=== PATIENT | female | born 1960 | race Caucasian/White ===

== ENCOUNTER 2020-12-28 13:04 | Outpatient (RCR) | payer BC, SELFPAY ==
--- NOTE | 2020-12-28 14:32 | PTOPEVAL ---
PHYSICAL THERAPY EVALUATION AND PLAN OF CARE 12-28-20 Thank you for referring Anel Klein to [facility], for the diagnosis of BPPV. Anel's Plan of Care is for? 0-2 x/week for 6 weeks. She is scheduled to have surgical repair of deviated septum in 2 days. She is to call if she has any further questions, or if she needs additional therapy post op. Please review, sign, date and return this plan of care DAVE. I agree with and certify that the following plan of care is medically necessary. Referring Physician Date Attending Provider: Jack Pimentel MD PT Outpatient Evaluation Document 12/28/20 13:20 YLNN (Rec: 12/28/20 14:32 LYNN [id number]) Past Medical History Source of Past Medical History Recalled from Previous Visit, Confirmed with Patient/Family Neurological History Hx Other Neurological Disorders Yes: vertigo Cardiovascular History Hx Cardiac Disorders No Significant History Respiratory History Hx Pneumonia Yes: 1982 Hx Other Respiratory Disorders Yes: smoker Gastrointestinal History Hx Irritable Bowel Yes Genitourinary History Hx Genitourinary Disorders No Significant History Musculoskeletal History Hx Back Pain Yes Hx Spinal Surgery Yes: neck disc fusion 2002, 2006bulging disc repaired in neck Hematological History Hx Hematological Disorders No Significant History Endocrine History Hx Endocrine Disorders No Significant History HEENT History Hx Sinus Problems Yes: take over the counter med to manage; Hx Other HEENT Disorders Yes: wear glasses eyes feel strained- need to get eye exam ; Integumentary History Hx Excision Skin Lesion Yes: wrist skin spot removed Reproductive History Hx Other Reproductive Disorders Yes: missed ab,d&c Psychosocial History Hx Psychiatric Disorders No Significant History Pain History Has Past Pain Affected Your Daily Life Yes: back pain Effective Methods of Pain Control ibuprofen,topical meds Anesthesia History Hx Anesthesia Reactions No Significant History Other History Hx Other Medical Conditions Yes: has had COVID vaccine Evaluation Information Problem Diagnosis BPPV Onset November 2020 Previous Treatments Previous Treatments For This Problem seeing chiropractor for neck pain 2x/month-gave eye tracking exercises Prior Level of Function Activity Level (Last 3 Months) 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
--- NOTE | 2021-03-21 16:22 | PCPTNOTE ---
PHYSICAL THERAPY DISCHARGE 03-21-21 LATER ENTRY Attending Provider: Jack Pimentel MD Patient:Anel Klein Date of :1960 Mrs. Klein has not returned for any further treatments since the PT evaluation for vertigo on 12/28/2020, therefore she will be discharged at this time. Thank you for referring this patient to [facility]. Please review, sign, date and return this discharge summary DAVE. I have been updated about the patient's current status and I agree with discharge from the above service at this time. Referring Physician Date
== END 2021-03-17 11:01 | disposition home or self-care (01) ==
LOC: ANHPT 13:04
PROVIDERS: Visit Provider Otolaryngology
DX: H81.10 Benign paroxysmal vertigo, unspecified ear (principal)
CPT/HCPCS: 97161

== ENCOUNTER 2020-12-28 14:29 | Outpatient (CLI) | payer BC, SELFPAY ==
--- NOTE | 2020-12-28 14:39 | ECG_ITS ---
Measurements Intervals [place] Rate: 73 P: 78 [place]: 195 QRS: 87 QRSD: 83 T: 60 QT: 382 QTc: 424 Interpretive Statements SINUS RHYTHM POSSIBLE LEFT ATRIAL ENLARGEMENT BORDERLINE ECG Electronically Signed On 12-28-2020 14:52:13 CDT by Sabas Melgar D.O.
== END 2020-12-28 14:30 | disposition home or self-care (01) ==
LOC: ANHSURGERY 14:34
PROVIDERS: PCP Registered Nurse; Visit Provider Otolaryngology
DX: Z87.891 Personal history of nicotine dependence (principal); R94.31 Abnormal electrocardiogram [ECG] [EKG]
CPT/HCPCS: 93005

== ENCOUNTER 2021-01-31 01:11 | Day surgery (SDC) | payer BC, SELFPAY ==
[2021-01-26 13:49] VITALS: BMI 17.9
[2021-01-31] VITALS (9 sets, daily range): BP systolic 118–156; BP diastolic 62–98; PULSE 68–84; RESP 16–21; TEMP 36.2–37.2; O2SAT 97–100
[2021-01-31] MEDS: ACETAMINOPHEN 500 MG TABLET 1000 MG PO (06:38)
[2021-01-31] MEDS: LACTATED RINGERS 1,000 ML 30 ML IV CONT (06:39)
[2021-01-31] MEDS: OXYMETAZOLINE HCL 0.05% NAS 15 ML BTL (*BKC) 1 SPRAY NASAL (06:39)
--- NOTE | 2021-01-31 06:42 | P.PNAN_ITS ---
Anes - Initial Pre Proc Eval Procedure: Operation Date: 01/31/21 07:30 Proposed Procedures p Septoplasty - Murtaza Cross MD s Bilateral Turbinate Reduction - Murtaza Cross MD Date/Time: 01/31/21 06:42 Surgeon: Murtaza Cross MD Pre Op Diagnosis: deviated septum, turbinate hypertrophy Patient Data Age: 60 Gender: F Height: 1.57 m Weight: 44.5 kg Allergies Allergy/AdvReac Type Severity Reaction Status Date / Time Penicillins Allergy Severe Itching Verified 01/26/21 13:30 Home Medications Medication Instructions Recorded Confirmed Type cyanocobalamin (vitamin B-12) 500 500 mcg PO DAILY 12/09/20 01/26/21 History mcg tablet levocetirizine 5 mg tablet 5 mg PO PRN PRN 12/09/20 01/26/21 History magnesium 250 mg tablet 250 mg PO DAILY 12/09/20 01/26/21 History omega-3 fatty acids 1,000 mg 1,000 mg PO DAILY 12/09/20 01/26/21 History capsule cholecalciferol (vitamin D3) 125 mcg PO DAILY 12/27/20 01/26/21 History [Vitamin D3] potassium 250 mg PO DAILY 12/27/20 01/26/21 History guaifenesin [Mucinex] 600 mg PO PRN PRN 01/26/21 01/26/21 History Patient hx anesthesia problems: none Family hx anesthesia problems: none [facility] Past Medical History Medical History (Updated 01/31/21 @ 06:43 by Desean Farias DO) Anxiety Surgical History Surgical History (Updated 01/31/21 @ 06:43 by Desean Farias DO) S/P cervical spinal fusion Social History Social History (Updated 12/09/20 @ 09:47 by Yamilet Green MA) Smoking packs per day: 1 Smoking cigarettes per day: 20.0 Years smoked: 38 Smoking pack-years: 38.00 Smoking status: Heavy tobacco smoker Tobacco type: cigarettes Additional smoking assessment comments: 1 ppd [id number] years Alcohol intake: current Drinks per week: 6 Substance use: never Spiritual care concerns: No Anes - Eval Final PreProcedure Day of Procedure 01/31/21 06:42 Patient weight: thin Heart: regular rate and rhythm Lungs: clear to auscultation and normal air movement Airway: Mallampati scale class II Neurological: alert and oriented Last oral intake: >/= 8 hours ASA classification: III Emergent: no Anesthetic plan: proceed Anesthesia type and monitoring: general ETT and standard monitoring Informed Consent: The patient's anesthetic plan and its attendant risks and elza efits were discussed with the patient/family/POA. Questions were solicited and answers provided to the satisfaction of the patient/family/POA.
--- NOTE | 2021-01-31 07:25 | WPDHPUPDATE1 ---
History and Physical Update Update Date/Time: 01/31/21 07:25 History and Physical has been reviewed, including an updated exam of the patient. There are NO changes in the patient's condition. Risks, benefits, and alternatives have been discussed and questions answered. Patient agrees to proceed with procedure.
[2021-01-31] MEDS: ceFAZolin 2 GM/D5W 50 ML 2 GM/50 ML BAG IVPB (07:30)
[2021-01-31] MEDS: LIDO 1%/EPINEPHRINE/PF 1:200,000 30 ML VIAL 6 ML XX (07:45)
[2021-01-31] MEDS: MUPIROCIN 2% OINT 22 GM TUBE 1 APPLIC EACH NARE (08:40)
--- NOTE | 2021-01-31 08:41 | P.OP_ITS ---
Procedure Note - Detailed Date of Procedure 01/31/21 Pre-op Diagnosis deviated septum, turbinate hypertrophy Post-op Diagnosis same Procedure Performed Septoturbinoplasty Surgeon Murtaza Cross MD Anesthesia general Indications deviated left nasal septum Findings left nasal septum deviation Description of Procedure After obtaining informed consent and proper site verification the patient was brought to the operating room and placed on the operating table in the supine position. They were placed under general endotracheal anesthesia by the anesthesia provider. The patient was then draped in standard fashion for septoplasty and turbinoplasty. A timeout was performed and the correct patient and procedure were verified. The nasal cavity was injected with 1% lidocaine with 1-100,000 epinephrine and packed with afrin-soaked cottonoid pledgets. ? Attention was then directed to the nasal septum. A hemitransfixion incision was made in the left caudal septum and a mucoperichondrial flap was elevated in the usual fashion. The flap was elevated under endoscopic visualization and the remainder of the case was performed with endoscopic assistance. Using a D- knife, an incision was made through the cartilaginous septum with care to preserve the appropriate caudal and dorsal ?L-strut? of cartilage. The cartilage was then disarticulated from the bony-cartilaginous junction and the deviated cartilage was removed. Further deviated bone and cartilage was removed from the maxillary crest and posterior bony septum with care to avoid injury to the mucoperichondrial flap using a combination of dissection and Efrem- Lilia forceps. Once this was completed, the hemitransfixion incision was closed using simple interrupted 4-0 chromic suture. A quilting stitch to reapproximate the mucoperichondrial flaps was then placed using 4-0 plain gut suture on a Bao needle. ? Next attention was directed to the turbinates. Using a 0? telescope and 2mm turbinate blade microdebrider, a stab incision was made in the anterior face of the turbinate and dissection was carried posterior to perform submucosal resection. Next the turbinate was outfractured using a blunt instrument. A similar procedure was then performed on the right-hand side without difficulty. Stapleton splints covered in mupirocin ointment were placed in the nasal cavity and secured to the membranous septum using a 3-0 Prolene suture. ?The patient was awakened from general anesthesia extubated in the operating room, and transported to the recovery room in stable condition without complication. Estimated Blood Loss 100 Drains No Packing Yes (stapleton) Pathology none sent Complications No immediate complications Condition stable Disposition PACU
[2021-01-31] MEDS: oxyCODONE HCL (*CRX) 5 MG TAB IR PO (09:53)
== END 2021-01-31 10:22 | disposition home or self-care (01) ==
PROVIDERS: PCP Registered Nurse; Visit Provider Otolaryngology
PROC: (CPT 30520; principal; 2021-01-31 07:30)
PROC: (CPT 30520; 2021-01-31 07:30)
DX: J34.2 Deviated nasal septum (principal); J34.3 Hypertrophy of nasal turbinates; F17.210 Nicotine dependence, cigarettes, uncomplicated; Z88.0 Allergy status to penicillin
CPT/HCPCS: 30520; 30140; A9270; J0330; J0690; J1100; J2250; J2405; J2704; J3010; J7120